=== PATIENT | male | born 1975 | race Caucasian/White ===

== ENCOUNTER 2020-09-15 19:04 | Inpatient (IN) | payer BC ==
[2020-09-15] MEDS ORDERED: IBUPROFEN 800 MG TAB PO STA (19:36)
--- NOTE | 2020-09-15 19:42 | ED ---
Lower Extremity Injury HPI - General Chief Complaint: Extremity Injury, Lower Stated Complaint: L Ankle Injury Time Seen by Provider: 09/15/20 19:18 Source: patient, RN notes reviewed Mode of arrival: wheelchair Limitations: no limitations - History of Present Illness Initial Comments: Patient states about one hour prior to arrival he was planning baseball and was running the bases 1 about was thrown at him hitting him in his left lower leg and ankle. Patient states has been having increased difficulty bearing weight, increased swelling to the lateral side of the ankle, and pain with inversion or eversion. Patient denies any other medical history. Denies smoking, drinking or any drug use. Patient denies any nausea vomiting diarrhea or fevers, denies any other injuries. MD Complaint: leg injury, ankle injury -: hour(s) (1) Injury: Ankle: Left, Foot: Left Type of Injury: blunt (hit with baseball) Place: street/outdoors Severity: mild Severity scale (1-10): 3 Improves With: nothing Worsens With: weight bearing, movement Context: direct blow - Related Data Home Medications Medication Instructions Recorded Confirmed No Known Home Medications 09/15/20 09/15/20 Allergies Allergy/AdvReac Type Severity Reaction Status Date / Time No Known Allergies Allergy Verified 09/15/20 21:12 Review of Systems ROS Statement: Those systems with pertinent positive or pertinent negative responses have been documented in the HPI. ROS Other: All systems not noted in ROS Statement are negative. Past Medical History Past Medical History: No Reported History History of Any Multi-Drug Resistant Organisms: None Reported Additional Past Surgical History / Comment(s): cyst removed from side of neck Past Anesthesia/Blood Transfusion Reactions: No Reported Reaction Past Psychological History: No Psychological Hx Reported Smoking Status: Never smoker Past Alcohol Use History: None Reported Past Drug Use History: None Reported - Past Family History Father Family Medical History: Cancer Mother Family Medical History: Cancer, Pulmonary Embolus General Exam Limitations: no limitations General appearance: alert, in no apparent distress Head exam: Present: atraumatic, normocephalic, normal inspection Eye exam: Present: normal appearance, PERRL, EOMI. Absent: scleral icterus, conjunctival injection, nystagmus, periorbital swelling Pupils: Present: normal accommodation ENT exam: Present: normal exam, normal oropharynx, mucous membranes moist Neck exam: Present: normal inspection, full ROM. Absent: tenderness, meningismus, thyromegaly Respiratory exam: Present: normal lung sounds bilaterally. Absent: respiratory distress, wheezes, rales, rhonchi, stridor, chest wall tenderness, accessory muscle use, decreased breath sounds Cardiovascular Exam: Present: tachycardia, normal heart sounds. Absent: systolic murmur, diastolic murmur, rubs, gallop, clicks, JVD GI/Abdominal exam: Present: soft, normal bowel sounds. Absent: distended, tenderness, guarding, rebound, rigid Left Hip exam: Present: full ROM. Absent: tenderness Upper Leg exam: Present: full ROM. Absent: tenderness Knee exam: Present: normal inspection. Absent: swelling, abrasion, ecchymosis, deformity Lower Leg exam: Present: full ROM Ankle exam: Present: tenderness, swelling (lateral malleolus ). Absent: laceration, ecchymosis Foot/Toe exam: Present: normal inspection (strong pedal pulses). Absent: swelling, abrasion Neurovascular tendon exam: Present: no vascular compromise. Absent: pulse deficit, abnormal cap refill, extremity cold to touch, pallor, foot drop Back exam: Present: full ROM. Absent: tenderness Neurological exam: Present: alert, oriented X3, CN II-XII intact Psychiatric exam: Present: normal affect, normal mood Skin exam: Present: warm, dry, intact, normal color. Absent: rash Course Vital Signs 09/15/20 09/15/20 19:06 21:25 Temperature 98.5 F Pulse Rate 118 H 104 H Respiratory 20 18 Rate Blood Pressure 160/89 172/91 O2 Sat by Pulse 97 97 Oximetry Procedures - Orthopedic Splinting/Casting Injury #1 Side: left Lower Extremity Injury Location: long leg Lower Extremity Immobilizer: posterior splint, stirrup splint, Perry wrap, synthetic pre-padded splint Medical Decision Making - Medical Decision Making Patient with an oblique fracture to the left distal tibia and left proximal fibula. Spoke with ortho and will admit patient to Dr. Sanchez. nothing by mouth after midnight for surgery in the morning. Patient understanding. Left leg splint and with long leg and stirrup. Neurovascularly intact. Case discussed with Dr. Hernandez. - Lab Data Result diagrams: 09/15/20 21:11 09/15/20 21:11 Lab Results 09/15/20 09/15/20 09/15/20 Range/Units 21:11 21:11 21:11 WBC 15.0 H (3.8-10.6) k/uL RBC 5.85 (4.30-5.90) m/uL Hgb 16.7 (13.0-17.5) gm/dL Hct 51.5 (39.0-53.0) % MCV 88.1 (80.0-100.0) fL MCH 28.6 (25.0-35.0) pg MCHC 32.5 (31.0-37.0) g/dL RDW 13.8 (11.5-15.5) % Plt Count 346 (150-450) k/uL MPV 6.3 Neutrophils % 85 % Lymphocytes % 10 % Monocytes % 3 % Eosinophils % 0 % Basophils % 0 % Neutrophils # 12.7 H (1.3-7.7) k/uL Lymphocytes # 1.5 (1.0-4.8) k/uL Monocytes # 0.5 (0-1.0) k/uL Eosinophils # 0.1 (0-0.7) k/uL Basophils # 0.0 (0-0.2) k/uL Manual Slide Review Performed PT 10.8 (9.0-12.0) sec INR 1.0 (<1.2) Sodium 137 (137-145) mmol/L Potassium 4.4 (3.5-5.1) mmol/L Chloride 105 (98-107) mmol/L Carbon Dioxide 22 (22-30) mmol/L Anion Gap 10 mmol/L BUN 25 H (9-20) mg/dL Creatinine 0.94 (0.66-1.25) mg/dL Est GFR (CKD-EPI)AfAm >90 (>60 ml/min/1.73 sqM) Est GFR (CKD-EPI)NonAf >90 (>60 ml/min/1.73 sqM) Glucose 109 H (74-99) mg/dL Calcium 9.9 (8.4-10.2) mg/dL Total Bilirubin 0.5 (0.2-1.3) mg/dL AST 40 (17-59) U/L ALT 23 (4-49) U/L Alkaline Phosphatase 71 (38-126) U/L Total Protein 7.7 (6.3-8.2) g/dL Albumin 4.8 (3.5-5.0) g/dL Coronavirus (PCR) (Not Detectd) Blood Type Blood Type Recheck Bld Type Recheck Status Antibody Screen Spec Expiration Date 09/15/20 09/15/20 Range/Units 21:11 21:11 WBC (3.8-10.6) k/uL RBC (4.30-5.90) m/uL Hgb (13.0-17.5) gm/dL Hct (39.0-53.0) % MCV (80.0-100.0) fL MCH (25.0-35.0) pg MCHC (31.0-37.0) g/dL RDW (11.5-15.5) % Plt Count (150-450) k/uL MPV Neutrophils % % Lymphocytes % % Monocytes % % Eosinophils % % Basophils % % Neutrophils # (1.3-7.7) k/uL Lymphocytes # (1.0-4.8) k/uL Monocytes # (0-1.0) k/uL Eosinophils # (0-0.7) k/uL Basophils # (0-0.2) k/uL Manual Slide Review PT (9.0-12.0) sec INR (<1.2) Sodium (137-145) mmol/L Potassium (3.5-5.1) mmol/L Chloride (98-107) mmol/L Carbon Dioxide (22-30) mmol/L Anion Gap mmol/L BUN (9-20) mg/dL Creatinine (0.66-1.25) mg/dL Est GFR (CKD-EPI)AfAm (>60 ml/min/1.73 sqM) Est GFR (CKD-EPI)NonAf (>60 ml/min/1.73 sqM) Glucose (74-99) mg/dL Calcium (8.4-10.2) mg/dL Total Bilirubin (0.2-1.3) mg/dL AST (17-59) U/L ALT (4-49) U/L Alkaline Phosphatase (38-126) U/L Total Protein (6.3-8.2) g/dL Albumin (3.5-5.0) g/dL Coronavirus (PCR) Not Detected (Not Detectd) Blood Type B Negative Blood Type Recheck No Previous Record Bld Type Recheck Status CABO Indicated Antibody Screen NEGATIVE Spec Expiration Date 09/18/20202310 Disposition Clinical Impression: Fracture of tibia, Fracture of fibula Disposition: ADMITTED IP TO THIS [facility] Condition: Good Is patient prescribed a controlled substance at d/c from ED?: No Decision Date: 09/15/20 Decision Time: 20:45
--- NOTE | 2020-09-15 20:26 | XR ---
EXAMINATION TYPE: XR tibia fibula LT DATE OF EXAM: 09/15/2020 CLINICAL HISTORY: Pain after baseball injury TECHNIQUE: Two views of the left tibia and fibula are obtained. COMPARISON: None. FINDINGS: There is a mildly displaced obliquely oriented fracture of the distal tibial metadiaphysis with no significant angulation. There is a moderately displaced obliquely oriented fracture of the pr oximal fibular diaphysis with no significant angulation. Normal osseous mineralization. There is a 2. 2 cm exophytic pedunculated bony outgrowth of the proximal posterior tibia, growing away from the kne e joint. IMPRESSION: 1. Displaced oblique fractures of the proximal fibular diaphysis and distal tibial metadiaphysis. 2. 2.2 cm pedunculated bony tumor of the proximal tibia, likely representing osteochondroma. These tu mors are typically benign, however can have malignant degeneration. MRI exam, utilized for follow-up as clinically indicated, is more sensitive for evaluation of the cartilage cap.
--- NOTE | 2020-09-15 20:33 | XR ---
EXAMINATION TYPE: XR ankle complete LT DATE OF EXAM: 09/15/2020 CLINICAL HISTORY: Pain after baseball injury. TECHNIQUE: Frontal, lateral and oblique images of the left ankle are obtained. COMPARISON: Same day left tibia-fibula radiograph FINDINGS: There is a redemonstrated distal tibial metadiaphyseal mildly displaced oblique fracture. T he mortise is maintained. There is ankle soft tissue swelling and ankle joint effusion. No evidence o f dislocation. IMPRESSION: 1. Distal tibial metadiaphyseal oblique fracture. 2. Soft tissue swelling and joint effusion of the left ankle.
[2020-09-15] MEDS ORDERED: ACETAMINOPHEN TAB 325 MG TAB PO PRN (20:53)
[2020-09-15] MEDS ORDERED: NALOXONE 0.4 MG/ML 1 ML VIAL IV PRN (20:53)
[2020-09-15] MEDS ORDERED: HYDROmorphone 0.5 MG/0.5 ML SYRINGE IVP STA (20:56)
[2020-09-15] MEDS ORDERED: CYCLOBENZAPRINE 10 MG TAB PO PRN (21:02)
[2020-09-15] MEDS ORDERED: HYDROmorphone 1 MG/ML 1 ML SYRINGE IVP PRN (21:03)
[2020-09-15 21:41] LABS: Basophils % (A) 0 %; Eosinophils # (A) 0.1 k/uL (0-0.7); Eosinophils % (A) 0 %; HCT 51.5 % (39.0-53.0); HGB 16.7 gm/dL (13.0-17.5); Lymphocytes # (A) 1.5 k/uL (1.0-4.8); Lymphocytes % (A) 10 %; MCH 28.6 pg (25.0-35.0); MCHC 32.5 g/dL (31.0-37.0); MCV 88.1 fL (80.0-100.0); Mean Platelet Volume 6.3; Monocytes # (A) 0.5 k/uL (0-1.0); Monocytes % (A) 3 %; Neutrophils # (A) 12.7 k/uL (1.3-7.7); Neutrophils % (A) 85 %; Platelet Count 346 k/uL (150-450); Prothrombin Time 10.8 sec (9.0-12.0); RBC 5.85 m/uL (4.30-5.90); RDW 13.8 % (11.5-15.5)
[2020-09-15 21:47] LABS: ALT 23 U/L (4-49); AST 40 U/L (17-59); African American GFR (CKD) >90 (>60 ml/min/1.73 sqM); Albumin 4.8 g/dL (3.5-5.0); Alkaline Phosphatase 71 U/L (38-126); Anion Gap 10 mmol/L; Blood Urea Nitrogen 25 mg/dL (9-20); Calcium 9.9 mg/dL (8.4-10.2); Carbon Dioxide 22 mmol/L (22-30); Chloride 105 mmol/L (98-107); Glucose 109 mg/dL (74-99); Non-African American GFR(CKD) >90 (>60 ml/min/1.73 sqM); Potassium 4.4 mmol/L (3.5-5.1); Sodium 137 mmol/L (137-145); Total Bilirubin 0.5 mg/dL (0.2-1.3); Total Protein 7.7 g/dL (6.3-8.2)
--- NOTE | 2020-09-15 22:23 | CT ---
EXAMINATION TYPE: CT lower leg LT wo con DATE OF EXAM: 09/15/2020 COMPARISON: Same day left tibia fibula radiograph HISTORY: FRACTURE TECHNIQUE: Contiguous axial images of the left lower leg were obtained without administration of intr avenous contrast. Coronal and sagittal reformatted images obtained. CT DLP: 795.1 mGycm Automated exposure control for dose reduction was used. FINDINGS: There is a redemonstrated moderately displaced obliquely oriented fracture of the proximal fibular di aphysis with no significant angulation, and with approximately 6 mm of shortening. Redemonstrated oblique, mildly comminuted, mildly displaced, non angulated fracture of the distal tib ia metadiaphysis. There is hairline fracture extension of the tibial fracture to the posterior malleo angle to the level of the tibiotalar articulation, without significant displacement. The posterior tibial metaphysis demonstrates a pedunculated exophytic bony tumor, growing away from t he joint, contiguous with the medullary cavity, measuring approximately 2.6 x 1.2 x 2.9 cm AP, transv erse, and craniocaudal respectively. Myofascial planes are preserved. There is a small suprapatellar joint effusion. There is soft tissue edema of the distal lower leg and ankle. IMPRESSION: 1. The distal tibial oblique fracture is mildly comminuted and mildly displaced at the metadiaphysis, with hairline fracture extension through the tibial posterior malleolar epiphysis to the level of th e tibiotalar articulation. 2. Moderately displaced oblique fracture of the proximal fibular diaphysis. 3. Pedunculated bony tumor of the proximal posterior tibia most likely represents osteochondroma, whi ch are typically benign. No discrete cartilaginous cap identified on CT exam. MRI exam, utilized for follow-up as clinically indicated, is more sensitive for evaluation of the cartilage cap.
[2020-09-16] MEDS: SODIUM CHLORIDE 0.9% 1,000 ML IV SCH ×2 (00:42→21:22)
--- NOTE | 2020-09-16 10:01 | P.HPOR ---
History of Present Illness H&P Date: 09/16/20 Chief Complaint: Left leg pain 45 yo male presented to [facility] with c/o Left leg pain and inability to ambulate. Yesterday he was playing baseball he states and was sliding into 3rd base when he hit the base the ball hit his leg and he felt a pop and extreme pain in his leg. He states he could not ambulate on it after. C/o leg pain no numbness or tingling. Denies any f/c/sob/cp. Denies any other injury. No BHT no LOC. States no chronic medical issues at this time. Review of Systems 14 point ROS as stated in HPI. All other systems reviewed negative. Past Medical History Past Medical History: No Reported History History of Any Multi-Drug Resistant Organisms: None Reported Additional Past Surgical History / Comment(s): cyst removed from side of neck, hydrocele repair Past Anesthesia/Blood Transfusion Reactions: No Reported Reaction Past Psychological History: No Psychological Hx Reported Smoking Status: Never smoker Past Alcohol Use History: None Reported Past Drug Use History: None Reported - Past Family History Father Family Medical History: Cancer Additional Family Medical History / Comment(s): Leukemia Mother Family Medical History: Cancer, Pulmonary Embolus Additional Family Medical History / Comment(s): Breast Cancer Medications and Allergies Home Medications Medication Instructions Recorded Confirmed Type No Known Home Medications 09/15/20 09/15/20 History Allergies Allergy/AdvReac Type Severity Reaction Status Date / Time No Known Allergies Allergy Verified 09/15/20 21:12 Physical Examination Osteopathic Statement: *. No significant issues noted on an osteopathic structural exam other than those noted in the History and Physical/Consult. AOX3 NAD PERRL CTAB no w/r/r/ RRR no murmur LLE: Splint in tact cap refill brisk <2 sec all toes wiggles all toes SILT L2-S1 2/4 DP pulse Compartments soft and compressive Painful syndesmotic squeeze. Pain over the lateral aspect of the proximal fibula Secondary orthopedic exam does not reveal any pain with any motion of any other joints. Results XR and CT reviewed of the LLE. Distal 1/3 tibial shaft fracture, spiral in nature with minimal comminution, displaced and shortened. No evidence of pathological fracture. Proximal fibula fracture noted as well that is displaced. Posteriolateral osteochondroma noted, contained and appears benign no evidence of cartilage cap on CT at this time. MRI is more sensitive. No other lesions noted. - Labs Labs: Abnormal Lab Results - Last 24 Hours (Table) 09/15/20 09/15/20 Range/Units 21:11 21:11 WBC 15.0 H (3.8-10.6) k/uL Neutrophils # 12.7 H (1.3-7.7) k/uL BUN 25 H (9-20) mg/dL Glucose 109 H (74-99) mg/dL H & H 09/15/20 Range/Units 21:11 Hgb 16.7 (13.0-17.5) gm/dL Hct 51.5 (39.0-53.0) % Coagulation 09/15/20 Range/Units 21:11 INR 1.0 (<1.2) Result Diagrams: 09/15/20 21:11 09/15/20 21:11 Assessment and Plan Assessment: 45 yo male s/p injry to [facility] with L distal 1/3 tibial shaft fracture and proximal fibular fracture displaced, closed, shortened, rotated. Plan: Orthopedic assessment Pain control prn NPO GI ppx mech dvt ppx at this time Maintain in splint Ice/elevation OR today for IM nail tibia Orthopedic Surgery Risk Review Tae Umanzor is a 45 yo male presenting for evaluation of sudden onset Left side leg pain, inability to ambulate after twisting injury while sliding into 3rd base. It was my pleasure to have seen and examined Tae Bryan . In our visit today we have had a chance to go over subjective complaints, physical examination findings and treatments including the natural course history without intervention and various interventional options. His imaging demonstrates Distal 1/3 tibia fracture and proximal fibula fracture on the L. On physical exam, Tae Umanzor demonstrates pain with motion of LLE which is NV intact at this time. I have explained to the patient that this fracture needs stabilization. Based on the patients imaging, physical exam, and the rapid progression and disabling nature of her symptoms, at this time I recommend surgery in the form or a: intramedullary nail fixation possible ORIF of the Left tibia I discussed the risk and benefits of this procedure at length with Tae Umanzor. Questions were invited and answered, and the patient wishes to proceed as outlined below. Currently, I am recommendin. Left tibial intramedullary nail fixation with possible open reduction and internal fixation of tibia and syndesmosis 2. Review of surgical risks and benefits as well as an educational packet on the proposed surgical procedure. Risks: All surgical procedures come with inherent risks, including those related to positioning, anesthesia, intraoperative findings, and postoperative complicat ions. It is important to understand that surgery does not come with any guarantee of a successful outcome as complications and adverse events are always possible. The patient was given a handout discussing the surgical procedure and risks associated with the intervention, both of which were discussed with the patient. These risks include but are not limited to the following: - Experiencing same, different or even worse symptoms compared to before surgery. - Requiring further surgery or other forms of treatment presently or at some time in the future . - On an extreme but fortunately relatively rare basis severe complication such as blindness, stroke, heart attack, temporary and/or permanent nerve injury, paralysis, coma, or may occur, sometimes without known explanation. - Surgical complications may include but are not limited to risk of infection, fluid accumulation in the surgical dissection site, including a seroma or hematoma, that requires additional surgery, wound drainage, bleeding, new numbness or weakness, vision changes/loss, spinal fluid leakage, non-healing and/or infected incision, headaches, difficulty or inability to swallow, hoarseness, hemopneumothorax, pneumothorax, injury to nerves, spinal cord, blood vessels, lymphatics or other vital organs (i.e., bowel injury, injury to the great vessels); heterotopic bone formation; complications related to the hardware such as screws, rods, including misplaced hardware, device failure, hardware fracture/breakage, or hardware loosening; retained surgical instrumentations or devices and the need for further surgery. - Medical risks of the planned surgery include but are not limited to generalized Infections to the whole body or local areas outside of the surgical site (sepsis), heart attack, bleeding, anaphylaxis, meningitis, seizure, epilepsy, hearing loss, burn whipple, laceration of the head or other areas of the body, bruising, hypersensitivity of the skin, bladder over distension; allergic reaction; shoulder injury related to positioning; fat, blood and air clots to other areas of the body like heart, lungs, brain; failure of internal organs such as lungs, kidneys, liver and excessive bleeding. If blood transfusions are necessary, note that transfusions may cause intolerance reactions such as anaphylaxis or other complex reactions. Despite best efforts, the results of surgery might not heal in terms of bone, soft tissues such as skin, fascia, ligaments, and joints. [facility] is an educational center that serves as a training facility for physician assistants, nurses, orthopedic residents and fellows. Residents are physicians who are completing their surgical intensive training following medical school. They assist in the operating room with direct supervision of the attending surgeons. [place] are surgeons who have completed their training and eligible for board certification. They have opted for an elective year of more specialized training in their field. They assist in the operating room under the supervision of the attending surgeons. Physician assistants are medically trained surgical providers who function in the outpatient, inpatient, and operating room setting under the direct supervision of the attending surgeon. [facility] has multiple operating rooms with single and overlapping r ooms running daily. They currently function under the required guidelines as produced by the [facility] Finance Committee with regards to the overlapping rooms and will continue to comply with changes to this policy as they occur. The requirements include and are complied with as follows: (1) the critical portions of the overlapping rooms will not occur at the same time, (2) the attending physician will be physically present during the critical portions of the procedure and immediately available during the entire case, and (3) a back-up attending is designated should the primary attending not be immediately available. The patient has had a chance to review all the listed information, has been given print outs detailing this information, and has had all his/her questions answered to their satisfaction. It was my pleasure to have seen and examined Tae Umanzor. In our visit today we have had a chance to go over my understanding of our patient's current condition, the natural course history without intervention and various interventional options. Questions were invited and answered, and the patient wishes to proceed as outlined above. I have seen and examined the patient for 25 minutes and we have spent more than 50% of the time in repeat and detailed counseling about the patient's condition, its natural course history with out and as much as can be predicted with surgery and re-review of various surgical treatment options. In conclusion,Tae Noé requested we proceed with the above suggested surgery and are willing to accept risks and limitations of the suggested surgery as nature of the disease process and our best attempts at treatment for the condition. Thank you again for allowing us to be part of your patient's care. Please don't hesitate to contact me if you have any further questions. Signed and authenticated by: Vijay Nieves [facility] [address], [place] [address] [place] [id number] Time with Patient: Greater than 30
[2020-09-16] MEDS ORDERED: LACTATED RINGERS 1,000 ML IV ONE ×2 (13:45→15:27)
[2020-09-16] MEDS ORDERED: fentaNYL (PF) 50 MCG/ML 2 ML AMP ONE (14:06)
[2020-09-16] MEDS ORDERED: MIDAZOLAM 2 MG/2 ML VIAL ONE (14:06)
[2020-09-16] MEDS ORDERED: PROPOFOL 10 MG/ML 20 ML VIAL IV ONE (14:06)
[2020-09-16] MEDS ORDERED: PHENYLEPHRINE-0.9% NACL SYG 1,000 MCG/10 ML SYRINGE ONE (14:06)
[2020-09-16] MEDS ORDERED: SODIUM CHLORIDE 0.9% 100 ML with ceFAZolin 2,000 MG IV ONE ×2 (14:25)
[2020-09-16] MEDS ORDERED: HYDROmorphone 0.5 MG/0.5 ML SYRINGE IVP ONE ×2 (16:25→16:40)
[2020-09-16] MEDS ORDERED: KETOROLAC 15 MG/ML 1 ML VIAL IVP ONE (16:30)
[2020-09-16] MEDS ORDERED: HYDROcodone/APAP 7.5-325MG 1 EACH TAB PO PRN (16:37)
[2020-09-17] MEDS: HYDROcodone/APAP 7.5-325MG 1 EACH TAB PO PRN ×2 (01:14→02:00)
[2020-09-17 04:43] VITALS: RESP 16
--- NOTE | 2020-09-17 08:14 | FL ---
Fluoroscopy and limited left leg HISTORY: Fracture 3 minutes 14 seconds fluoroscopy time supplied to the referring clinician. 6 intraoperative C-arm im ages document the procedure. See dictated report from orthopedic surgery.
[2020-09-17] MEDS ORDERED: ENOXAPARIN 40 MG/0.4 ML SYRINGE SQ SCH (09:00)
[2020-09-17 12:43] VITALS: BP 137/90; PULSE 94; TEMP 98.1
--- NOTE | 2020-09-17 13:14 | P.PN ---
Subjective Progress Note Date: 09/17/20 Principal diagnosis: Status post IM nail left tibia fracture Patient is examined at bedside today, is resting comfortably. He is urinating with no difficulties. He's been ambulating with crutches. He notes some heaviness in the leg when he gets up, the pain is well-controlled. Denies any headaches, lightheadedness, chest pain, shortness of breath, numbness or tingling in the lower extremity. Objective - Vital Signs Vital signs: Vital Signs Temp 98.1 F 09/17/20 12:43 Pulse 94 09/17/20 12:43 Resp 16 09/17/20 12:43 BP 137/90 09/17/20 12:43 Pulse Ox 99 09/17/20 12:43 Intake & Output 09/16/20 09/17/20 09/17/20 18:59 06:59 18:59 Intake Total 1900 800 Output Total 150 700 Balance 1750 100 Intake: IV 1500 Intake, IV Titration 300 Amount Sodium Chloride 0.9% 1, 200 000 ml @ 20 mls/hr IV . Q24H HAROLDO Rx#:[id number] ceFAZolin 2 gm In Sodium 100 Chloride 0.9% 50 ml @ 100 mls/hr IVPB Q8H HAROLDO Rx#: [id number] Oral 400 500 Output: Urine 700 Estimated Blood Loss 150 Other: Voiding Method Urinal Urinal Urinal # Voids 1 - Exam Left lower extremity: Postop splint is in good position and condition. The bandage around the knee was taken down and redressed. The skin is warm to touch both proximal distal to the splint. He is able to wiggle the toes and no difficulty. His sensory exam to light touch is intact both proximal distal to the splint. The compartments of the upper leg are soft. - Labs CBC & Chem 7: 09/15/20 21:11 09/15/20 21:11 Assessment and Plan Assessment: Postoperative day #1 status post IM nail left tibia fracture Plan: Pain control, plan for discharge home on [place] 7.5 mg/325 mg DVT prophylaxis, aspirin 325 mg daily Wound care instructions were discussed Activity level and cast instructions were discussed Icing and elevating techniques discussed He will continue nonweightbearing at this time Discharge planning: Plan for discharge home today, follow-up in 10 days Time with Patient: Less than 30
--- NOTE | 2020-09-17 13:20 | P.DS ---
Providers Date of admission: 09/15/20 21:22 Expected date of discharge: 09/17/20 Attending physician: Vijay Sanchez DO Primary care physician: Stated None Hospital Course: Date of admission: [] Date of discharge: 09/17/2020 Admission diagnosis: Displaced left tibia fracture, displaced left proximal fibular fracture Discharge diagnosis: Status post intramedullary nail left tibia fracture Attending physician: Dr. Sanchez Surgical procedures: Closed reduction with intramedullary nail left tibia fracture Brief history: Patient is a 45-year-old male who was evaluated at [facility] after a baseball injury injuring his left lower extremity. It was determined he had a displaced left distal tibia fracture and a proximal fibular fracture. Patient was admitted to [facility] under our orthopedic care with plan for surgical intervention. He underwent a closed reduction with intramedullary nail placement of the left tibia fracture. Hospital course: Details of patient's surgery can be found in operative report. Patient tolerated the procedure well and was subsequently transported to orthopedic floor. Patient's orthopeidc and medical care was provided daily. Patient had daily laboratory tests performed for evaluation of overall blood counts. Patient had daily physical therapy to include strengthening range of motion as well as education with walker ambulation. Patient was treated with Lovenox for their postoperative DVT prophylaxis during their inpatient stay. Patient was noted to have a relatively uneventful postoperative course. Patient reported satisfactory pain control with oral pain medications by postoperative day 0. Patient showed satisfactory progress with physical therapy. Patient moved steadily through the program and had no difficulty meeting the goals by postoperative day 1. Given patient's otherwise satisfactory course and having met physical therapy goals, plan is to discharge patient [home] on postoperative day 1. Discharge condition/disposition: Patient will be discharged [home] in stable condition. Discharge medications: Instructions are given on resumption of patient's normal daily medications per primary care recommendation, in addition patient will be prescribed [place] 7.5 mg/325 mg, Colace 100 mg, aspirin 325 mg. Discharge instructions: 1. Do not remove the splint, keep incisions covered and dry while showering. 2. Nonweightbearing left lower extremity 3. Ice and elevate when necessary. Do not exceed 20 minutes per hour with ice pack. 7. Pain meds and anticoagulants per prescription. 8. Pain medication has potential to cause constipation. Increase oral fluid and fiber intake. Contact primary care provider if you have not had a bowel movement within 48 hours after discharge 9. No anti-inflammatory medication until discussed at first post operative visit, this including Motrin, Aleve, Mobic, Diclofenac 10. Follow up in office at 1 weeks postop with Jimmy Mendoza PA-C/Jim Russell 11. Follow up with your primary care doctor 7-10 days after discharge. 12. Contact [facility] with any questions, . Procedures: Intramedullary nail left tibia fracture Patient Condition at Discharge: Good Plan - Discharge Summary Discharge Rx Participant: No New Discharge Prescriptions: New Aspirin 325 mg PO DAILY #30 tab HYDROcodone/APAP 7.5-325MG [[place] 7.5] 1 - 2 each PO Q6HR PRN #42 tab PRN Reason: Pain Docusate [Colace] 100 mg PO DAILY #30 capsule Discharge Medication List Aspirin 325 mg PO DAILY #30 tab 09/17/20 [Rx] Docusate [Colace] 100 mg PO DAILY #30 capsule 09/17/20 [Rx] HYDROcodone/APAP 7.5-325MG [[place] 7.5] 1 - 2 each PO Q6HR PRN #42 tab 09/17/20 [Rx] Follow up Appointment(s)/Referral(s): None,Stated [Primary Care Provider] - 1-2 days Vijay Sanchez DO [Doctor of Osteopathic Medicine] - 1 Week Activity/Diet/Wound Care/Special Instructions: Discharge instructions: 1. Keep splint in place, do not remove Perry bandage. Keep the splint covered and dry while showering 2. Ice and elevate often 3. Aspirin 325 mg daily for DVT prophylaxis 4. Colace as needed for constipation 5. Pain medication as needed, [id number] Tylenol Motrin as needed 6. Plan for follow-up at [facility] 1 week Discharge Disposition: HOME SELF-CARE
--- NOTE | 2020-09-18 09:57 | P.OP ---
Date of Procedure: 09/16/20 Preoperative Diagnosis: 1. Left distal 1/3 tibial fracture, spiral, displaced, rotated, shortened. 2. Proximal fibula fracture 3. S/p baseball injury Postoperative Diagnosis: 1. Left distal 1/3 tibial fracture, spiral, displaced, rotated, shortened. 2. Proximal fibula fracture 3. S/p baseball injury Procedure(s) Performed: 1. Open reduction and intramedullary nail fixation of LEFT distal 1/3 tibial shaft fracture. Implants: Synthese 11 mm x 360 mm tibial nail two proximal locking screws two distal locking screws Anesthesia: MAC, spinal Surgeon: Vijay Sanchez Lead Recreation Assistant #1: Jurgen Mendoza (was present for the entire case and necessary due to the complexity of the case. ) Estimated Blood Loss (ml): 150 IV fluids (ml): 1,200 Urine output (ml): 0 Pathology: none sent Condition: stable Disposition: PACU Indications for Procedure: 45 yo male presented to [facility] with c/o Left leg pain and inability to ambulate. Yesterday he was playing baseball he states and was sliding into 3rd base when he hit the base the ball hit his leg and he felt a pop and extreme pain in his leg. He states he could not ambulate on it after. C/o leg pain no numbness or tingling. Denies any f/c/sob/cp. Denies any other injury. No BHT no LOC. States no chronic medical issues at this time. Operative Findings: displaced, spiral distal 1/3 tibial shaft fracture. Description of Procedure: The patient was seen and examined in the preoperative area. All preoperative protocols were followed. Informed consent was obtained risks and benefits of the procedure were discussed at length. Risks including bleeding infection damage to the surrounding tissue and risk of reoperation were discussed with the patient. Risk of anesthesia up to and including was a discussed with the patient. These are outlined in the risk reviewed. They were willing to accept these risks and all of the risks of surgery. The patient was given a weight- based dose of antibiotics in the form of 2 g of Ancef IVPB 1. The patient was seen and evaluated by the anesthesia team who deemed them fit for surgery. The site was marked, the patient was willing to proceed with the procedure. The patient was transferred to the operative suite by the Department of anesthesia. There were then drifted off to sleep by the department of anesthes ia and spinal with sedation anesthesia was used. Once adequate anesthesia had been obtained the patient was carefully transferred to the operative bed. All bony prominences were padded accordingly. SCDs were placed on the nonoperative lower extremities. Arms were well padded. Left lower extremity was exposed. Tourniquet was placed on the patient's left upper leg and was well-padded 10:15 was placed around this. The patient's leg was then placed on a bone foam and a bump was placed under his left hip. These were then secured to the table with tape. SCD was placed on the nonoperative lower extremity. Preoperative briefing was done with the operative team and everyone was ready for the procedure to start. The patients left lower extremity was then prepped and draped in the normal sterile fashion. Timeout was then performed and all parties in agreement with the procedure to be performed. X-rays were taken and the fracture was close reduced under fluoroscopic guidance however there is still a little bit of translation so small poke holes were made in the distal aspect of the patient's left leg and a large [id number] clamp was used to hold reduction of the fracture which allowed for good rotational control as well. Then turned our attention proximally and made in an 4 cm incision midline from the superior pole of patella. This traveled down and we incised the quad tendon in line with its fibers. We then access the knee joint and the suprapatellar jig was placed atraumatically through the knee joint to allow for protection of the joint surface as well as placement of the nail. We then took a starting pin and on AP and lateral fluoroscopy located the starting point just medial lateral tibial spine in line with the tibial shaft just anterior to the articular surface on lateral. Once this was in good position it was advanced then placed the opening reamer through the suprapatellar guide. This was done and advanced under lateral fluoroscopy. This was then removed and a ball-tipped guidewire was placed ball-tipped guidewire was passed all the way to the physis scar distally and this is confirmed to be in a center center position on AP and lateral fluoroscopy. The fracture remained reduced. We then sequentially reamed the tibial canal to a size 12 reamer by ones starting at 9. The fracture remained reduced to this. There is unable to atraumatically place a 11 mm x 360 mm tibial nail. This was impacted into place atraumatically the fracture held reduction well. There was still slight shortening of the fracture and so a distal screw was placed in the anterior to posterior hole using perfect sac and [place] method. Once this was placed light taps on the jig allowed for the nail to help with reduction of the fracture and we gained some length back with this. Once this was in good position we placed one locking screw proximally to lock this into position through the static hole. We then placed the medial to lateral locking screw distally through perfect sac and [place] method and then placed a second oblique static locking screw proximally through the jig. Once all locking screws were placed in the reduction clamp was removed. We then removed the nail insertion jig as well as the suprapatellar jig. We took AP and lateral fluoroscopy of the construct and the nail was in good position with good position of the locking screws proximally and distally with excellent reduction of the fracture. The wounds were then copiously irrigated normal sterile saline 3 L the knee was copiously irrigated with normal sterile saline 3 L. The quad t endon was then closed with a #1 Vicryl in a running fashion. Followed by subcu closure with 2-0 Vicryl and carlos. Distal poke hole incisions were closed where copiously irrigated and were closed with 2-0 Vicryl followed by carlos. Patient was placed in a well-padded well molded short leg splint on the left lower extremity. All of his wounds were dressed sterilely with Adaptic 4 x 4's ABDs and Kerlix. The patient was then transferred back to their hospital bed. There were awakened by department of anesthesia having tolerated the procedure very well with no complications. The patient was then transported to the postoperative care unit in stable condition.
== END 2020-09-17 15:15 | disposition home or self-care (01) | DRG 494 ==
LOC: EC 19:04 → 5NMEDONC 21:22
PROVIDERS: ADMIT Orthopaedic Surgery; ATTEND Orthopaedic Surgery
PROC: 0QSH06Z Reposition Left Tibia with Intramedullary Internal Fixation Device, Open Approach (ICD-10-PCS; principal; 2020-09-16 09:54)
DX: S82.302A Unspecified fracture of lower end of left tibia, initial encounter for closed fracture (principal); S82.832A Other fracture of upper and lower end of left fibula, initial encounter for closed fracture; X50.1XXA Overexertion from prolonged static or awkward postures, initial encounter; Y92.320 Baseball field as the place of occurrence of the external cause; Z80.6 Family history of leukemia; Z80.3 Family history of malignant neoplasm of breast; Z20.822 Contact with and (suspected) exposure to COVID-19
CPT/HCPCS: 29505; 36415; 80053; 85025; 85610; 86850; 86900; 86901; 87635; 99285